=== PATIENT | female | born 1970 | race Asian ===

== ENCOUNTER 2025-05-18 17:41 | Emergency (ER) | payer MEDICAID, OTHER ==
[~2025-05-18] VITALS: Ht 160 cm; Wt 59.1 kg
[2025-05-18 22:15] VITALS: TEMP 98.005280
[2025-05-18 22:36] LABS: PLATELET COUNT (AUTO) 186 K/uL (150-450); RED BLOOD CELL COUNT(AUTO) 5.74 MIL/uL (4.00-5.20); RED CELL DISTRIBUTION WIDTH 15.0 % (11.5-14.5); WHITE BLOOD COUNT (AUTO) 4.2 K/uL (4.5-11.0)
[2025-05-18 22:47] LABS: CALCIUM, TOTAL 9.3 mg/dL (8.8-10.5); CREATININE 0.45 mg/dL (0.60-1.30); GLOMERULAR FILTR. RATE CALC > 60 mL/min (>60); GLUCOSE,RANDOM 110 mg/dL (70-110); SODIUM SERUM 140 mmol/L (136-145); UREA NITROGEN, BLOOD 12 mg/dL (7-18)
[2025-05-18] MEDS: ACETAMINOPHEN 500 MG TABLET PO ONE (22:49)
[2025-05-18] MEDS: IBUPROFEN 400 MG TABLET PO ONE (22:49)
[2025-05-18] MEDS: METOCLOPRAMIDE HCL 10 MG TABLET PO ONE (23:04)
[2025-05-19 00:53] VITALS: BP 145/72; PULSE 64; RESP 16; O2SAT 99
== END 2025-05-19 01:46 | disposition home or self-care (01) ==
LOC: EMS 17:41
DX: G43.909 Migraine, unspecified, not intractable, without status migrainosus (principal); I10 Essential (primary) hypertension
CPT/HCPCS: 80048; 85025; 99284